=== PATIENT | male | born 1950 | race Caucasian/White ===

== ENCOUNTER 2017-08-27 08:25 | Outpatient (CLI) | payer MEDICARE, OTHER ==
--- NOTE | 2017-08-27 10:16 | ULT ---
ABDOMINAL AORTIC ULTRASOUND: DATE: 08/27/17. HISTORY: Abdominal pain, hypertension. FINDINGS: Multiple longitudinal and transverse images of the abdominal aorta were obtained using a multihertz curvilinear transducer. Real-time and color flow images demonstrate the abdominal aorta to have pro ximal diameter of approximately 2.0 x 2.1 cm, 2.0 x 1.9 cm in the middle abdominal aorta, and 1.8 x 1.8 cm in the distal abdominal aorta. No definite evidence of abdominal aortic aneurysmal dilatation seen. POS: [facility]
== END 2017-08-27 08:26 | disposition home or self-care (01) ==
LOC: ULT 08:25
PROVIDERS: ATTEND Family Medicine
DX: Z13.6 Encounter for screening for cardiovascular disorders (principal)
CPT/HCPCS: 76775

== ENCOUNTER 2021-01-03 13:32 | Outpatient (CLI) | payer MEDICARE, OTHER ==
[2021-01-03 14:20] LABS: Estimated GFR-MDRD - POC Greater than 90
== END 2021-01-03 13:33 | disposition home or self-care (01) ==
LOC: BICMRI 13:32 → MRI 13:33
PROVIDERS: ATTEND Physician Assistant
DX: R41.3 Other amnesia (principal)
CPT/HCPCS: 70544; 70553; 80061; 81001; 82565; 82607; 82746; 83036; G0103; 80053; 84443; 85025